=== PATIENT | female | born 1935 | race Caucasian/White ===

== ENCOUNTER 2021-07-07 09:52 | Emergency (ER) | payer OTHER ==
[2021-07-07 09:58] VITALS: TEMP 97.7; BMI 24.4
[2021-07-07] MEDS ORDERED: MECLIZINE HCL 12.5 MG TABLET PO ONE (10:16)
[2021-07-07] MEDS ORDERED: MECLIZINE HCL 12.5 MG TABLET ONE (10:24)
[2021-07-07 10:40] LABS: HEMATOCRIT 43.2 % (32.4-45.2); MCHC 34.7 g/dl (32.0-36.0); MEAN CELL VOLUME 86.3 fl (80-96); MEAN PLT VOLUME 8.7 fl (7.5-11.1); RDW 14.9 % (11.6-15.6); WHITE BLOOD COUNT 11.3 10^3/uL (4.0-10.8)
[2021-07-07 10:48] LABS: ALBUMIN 3.9 g/dl (3.4-5.0); BILIRUBIN,TOTAL 0.5 mg/dl (0.2-1); CALCIUM 9.5 mg/dl (8.5-10); CREATININE 1.1 mg/dl (0.55-1.3); TOT PROT 7.1 g/dl (6.4-8.2)
[2021-07-07 11:58] VITALS: BP 153/66; PULSE 78
== END 2021-07-07 12:35 | disposition home or self-care (01) ==
LOC: FER 09:52
DX: R42 Dizziness and giddiness (principal)
CPT/HCPCS: 36415; 70450-TC; 72125-TC; 80053; 85025; 99285-25